=== PATIENT | male | born 1980 | race American Indian/Alaskan Native ===

== ENCOUNTER 2020-12-14 09:16 | Emergency (ER) | payer SELFPAY ==
[2020-12-14 09:30] VITALS: BP 121/74
--- NOTE | 2020-12-14 10:20 | Emergency Department Report ---
Chief Complaint: Urogenital-Male Stated Complaint: PAINFUL URINATION Time Seen by Provider: 12/14/20 10:11 - HPI History of Present Illness: pt is a 40 yo male who presents to the ED with c/o dysuria that began a week ago. he denies any hematuria, penile discharge, pain or swelling in the testicles, fever, n/v/d, back pain, abd pain. he denies any PMHx. no allergies to meds. Vitals are normal On exam: Non toxic appearing, no acute distress atraumatic, normocephalic normal appearance of the eyes, PERRL, EOMI, no periorbital edema or ecchymosis moist mucus membranes No respiratory distress, no accessory muscle use No abdominal tenderness on exam, no guarding, no rebound, no rigidity A&O x4, no focal neuro deficit skin is warm, dry, intact Patient is presenting for possible STD Dysuria for a week and is sexually active without protection he denies any hematuria, penile discharge, pain or swelling in the testicles, fever, n/v/d, back pain, abd pain Patient be referred to a clinic and the health department Patient will also be referred to a primary care physician advised pt please follow up with a clinic or the health department. please have full STD panel. have any partner tested and treated as well. follow up with a primary care doctor. avoid sexual intercourse. return to the emergency room for any new or worsening symptoms. Discussed strict return precautions Medical screening examination performed there is no threat to life or limb at t his time - Exam Vital Signs: Vital Signs 12/14/20 09:26 Temperature 98.2 F Pulse Rate 83 Respiratory 20 Rate Blood Pressure 121/74 O2 Sat by Pulse 100 Oximetry MSE screening note: Focused history and physical exam performed. Due to findings the following was ordered: ED Disposition for MSE Clinical Impression: Dysuria Disposition: Z-07 MED SCREENING EXAM-LEFT Is pt being admited?: No Does the pt Need Aspirin: No Condition: Stable Additional Instructions: please follow up with a clinic or the health department. please have full STD panel. have any partner tested and treated as well. follow up with a primary care doctor. avoid sexual intercourse. return to the emergency room for any new or worsening symptoms. walk in clinic: [facility] Address: [address] [place] [id number] Referrals: PRIMARY CARE, [Primary Care Provider] - 3-5 Days [facility] [Provider Group] - 3-5 Days [facility], [LAB/CONTRACT] - 3-5 Days [facility] [Outside] - 3-5 Days [facility] [Outside] - 3-5 Days Time of Disposition: 10:18 Print Language: MAORI
== END 2020-12-14 10:20 | disposition left against medical advice (07) ==
LOC: ED 09:16
DX: R30.0 Dysuria (principal); Z53.21 Procedure and treatment not carried out due to patient leaving prior to being seen by health care provider